=== PATIENT | female | born 1930 | race Caucasian/White ===

== ENCOUNTER 2016-07-18 12:02 | Emergency (ER) | payer OTHER ==
[2016-07-18] MEDS ORDERED: ASPIRIN ONE (12:09)
[2016-07-18] MEDS ORDERED: ASPIRIN PO ONE (12:10)
[2016-07-18 12:21] LABS: MANUAL DIFF NEEDED? NO
[2016-07-18 12:22] LABS: BASO% 0.2 % (0.0-0.8); EOS% 0.7 % (0.0-10.0); HEMOGLOBIN 15.5 g/dL (12.0-16.0); IMM GRAN# 0.02 X1000 (0.0-0.04); IMM GRAN% 0.1 % (0.0-0.5); LYMPH# 3.41 X1000 (1.2-3.4); LYMPH% 25.5 % (20.5-51.1); MCH 26.5 PG (27-31); MCV 80.2 FL (81-99); MONO# 1.48 X1000 (0.11-0.59); MONO% 11.1 % (1.7-9.3); MPV 12.8 FL (7.4-10.4); NEUT% 62.4 % (42.2-75.2); PLT 234 X1000 (130-400); RBC 5.86 XMIL (4.2-5.4)
--- NOTE | 2016-07-18 12:36 | EKG Report ---
Test Performed on : 07/18/2016 12:12:03 PM Test Reason : CP Blood Pressure : / mmHG Vent. Rate : 055 BPM Atrial Rate : 055 BPM P-R Int : 228 ms QRS Dur : 170 ms QT Int : 542 ms P-R-T Axes : 067 -75 036 degrees QTc Int : 518 ms Sinus bradycardia. with 1st degree AV block. Possible Left atrial enlargement Right bundle branch block Left anterior fascicular block Bifascicular block Septal infarct , age undetermined Abnormal ECG When compared with ECG of 25-NOV-2012 04:58, Septal infarct is now present Unconfirmed Result
[2016-07-18 12:37] LABS: INR 1.28 (0.86-1.15); PROTIME 16.3 Seconds (12.1-15.5)
[2016-07-18 12:45] LABS: AGAP 13; ALBUMIN 4.4 g/dL (3.5-5.0); ALKALINE PHOSPHATASE 82 U/L (32-104); BUN 18 mg/dL (8-22); CALCIUM 9.5 mg/dL (8.8-10.2); CHLORIDE 99 mmol/L (98-107); CK PROFILE 73 U/L (24-173); COSMO 279; GOT 26 U/L (10-30); GPT 21 U/L (10-36); MAGNESIUM 2.1 mg/dL (1.5-2.7); POTASSIUM 3.8 mmol/L (3.5-5.1); SODIUM 139 mmol/L (136-145); TCO2 28 mmol/L (25-35); TOTAL PROTEIN 7.6 g/dL (6.3-8.3)
--- NOTE | 2016-07-18 12:45 | ED EKG INTERP ---
EKG Interpretation - EKG Time of EKG reading by physician:: 12:12 EKG Read and Signed by:: Suraj Ho EKG Interpretation (*Must complete 3 of following elements*): Abnormal ( bifascicular block; septal infarct, age undetermined) Rate: 55 Rhythm: sinus bradycardia with 1st degree AV block Comments: possible left atrial enlargement; RBBB; left anterior fascicular block Attestation - Scribe Verification/Attestation Scribe:: Lucila Grullon Acting as Scribe for:: Suraj Ho Scribe documention review:: This chart was documented by a scribe and accurately reflects the service the provider performed and the decisions made by the provider.
--- NOTE | 2016-07-18 13:28 | PROVIDER DOCUMENTATION ---
HPI-Chest Pain - General Chief Complaint: Chest Pain Stated Complaint: B/P PROB/CHEST PAIN Time Seen by Provider: 07/18/16 13:23 Source: patient Allergies/Adverse Reactions: Patient Allergies Allergy/AdvReac Type Severity Reaction Status Date / Time Penicillins Allergy HIVES Verified 09/09/13 16:39 Home Medications: Home Medication List Medication Instructions Recorded Confirmed Last Taken Type Benzonatate 100 mg PO TID PRN PRN 11/25/12 11/25/12 Unknown History Calcium Carb/Vit D3/Minerals 1 each PO 11/25/12 09/09/13 11/24/12 17:00 History [Calcium 600 + D Tablet] Diltiazem HCl [Diltiazem 24Hr ER] 240 mg PO 11/25/12 09/09/13 11/24/12 06:00 History Flecainide Acetate 50 mg PO 11/25/12 11/25/12 11/24/12 17:00 History Magnesium Oxide [Magnesium] 400 mg PO 11/25/12 09/09/13 11/24/12 17:00 History Meclizine HCl [Antivert] 25 mg PO PRN PRN 11/25/12 09/09/13 Unknown History Multivitamin [Multivitamins] 1 each PO 11/25/12 09/09/13 11/24/12 06:00 History Omeprazole 20 mg PO PRN PRN 11/25/12 09/09/13 Unknown History PRAVAstatin [Pravachol] 20 mg PO QHS 11/25/12 09/09/13 Unknown History Risedronate Sodium [Actonel] 150 mg PO DIRECTED 11/25/12 09/09/13 11/20/12 06 :00 History Rivaroxaban [Xarelto] 20 mg PO DAILY 11/25/12 09/09/13 11/24/12 17:00 History Tramadol [Ultram] 50 mg PO Q4H PRN PRN 11/25/12 09/09/13 Unknown History Acetaminophen E.r. [Tylenol 650 mg PO BID 09/09/13 09/09/13 Unknown History Arthritis] Amlodipine Besylate [Norvasc] 2.5 mg PO DAILY 09/09/13 09/09/13 Unknown History Tramadol [Ultram] 50 mg PO Q8HR PRN #30 tablet 09/09/13 Unknown Rx Nitroglycerin [Nitrostat] 0.4 mg SL DIRECTED PRN PRN #20 07/18/16 Unknown Rx tab.subl - History of Present Illness-CP Nature of Presenting Problem: Pt is 85 y/o F presents to the ED with chest pain. Pt states had it yesterday for 15 minutes then resolved. Pt states pain started this am. Pt states she thought it was heartburn. Pt denies radiation of pain. Location: reports: central Chest Pain Radiation: reports: no radiation Quality of Pain: reports: pressure Severity in ED: mild Onset/Duration: this morning Timing: gone now Context/Activities at Onset: reports: light activity Modifying Factors: improves with: nothing Associated Symptoms: reports: denies symptoms Nitro Today/Relief: no nitro taken today Aspirin Treatment Today: no aspirin today Prior Chest Pain/Cardiac Workup: reports: stress test Similar Symptoms Previously?: Yes Recently Seen Here or By Another Healthcare Provider: No Review of Systems - Adult - REVIEW OF SYSTEMS - ADULT Constitutional: denies: chills, fever Eyes: denies: blurred vision, double vision Ears, Nose, Mouth & Throat: denies: ear pain, nose pain, throat pain Cardiovascular: reports: chest pain. denies: heart murmur, irregular heart rate Respiratory: denies: cough, shortness of breath, wheezing Gastrointestinal: denies: abdominal pain, diarrhea, nausea, vomiting Genitourinary: denies: dysuria, hematuria Musculoskeletal: denies: bone pain, joint pain, neck pain Integumentary: denies: hives, itching Neurological: denies: dizziness/vertigo, headache/migraines Psychiatric: reports: no symptoms reported Endocrine: reports: no symptoms reported Hematologic/Lymphatic: reports: no symptoms reported Allergic/Immunologic: reports: no symptoms reported All Other Systems: Reviewed and Negative Past History - Adult - PAST MEDICAL HISTORY-ADULT Review of Records: reports: Nursing Assessment Review, Medications Reviewed, Social history reviewed & non-contributory. Major Childhood Illnesses: reports: denies history Cardiovascular: reports: cardiac disease, HTN, hyperlipidemia Respiratory: reports: denies history Gastrointestinal: reports: GERD Obstetrical/Gynecological: reports: denies history Genitourinary: reports: denies history Musculoskeletal: reports: denies history Neurological: reports: denies history Endocrine/Immune: reports: other (osteoarthritis) Other Conditions: reports: denies history - PRIOR SURGERIES/PROCEDURES Surgical/Procedure History: reports: hysterectomy, tonsillectomy, joint replacement (knee), other (mastectomy) - IMMUNIZATION STATUS Childhood Immunizations: See Nurse Assessment Flu Vaccine: See Nurse Assessment - FAMILY HISTORY Family History: reviewed, not pertinent - SOCIAL HISTORY Smoking: denies Substance Use: denies Living Situation: family Physical Exam-General - PHYSICAL EXAM-ADULT Initial Vital Signs Reviewed: Yes - CONSTITUTIONAL General Appearance: appears well, alert, no apparent distress - EYES Eyes: PERRL/EOMI, pink conjunctivae, fundi clear, no AV nicking - HEAD, EARS, NOSE, MOUTH & THROAT HENMT: normocephalic/atraumatic, moist mucous membranes, normal ENT inspection, TMs normal, pharynx normal - NECK Neck: non-tender, full range of motion, supple, normal inspection - RESPIRATORY Respiratory: chest non-tender, lungs clear, normal breath sounds, no pleuratic chest pain, no respiratory distress, no accessory muscle use - CARDIOVASCULAR Cardiovascular: normal peripheral pulses, regular rate, rhythm, no edema, no gallop, no JVD, no murmur - GASTROINTESTINAL (ABDOMEN) Abdominal Exam: normal bowel sounds, non tender, soft, no organomegaly, no pulsatile mass - LYMPHATIC Lymphatic: no adenopathy - MUSCULOSKELETAL Back Exam: normal inspection, no CVA tenderness, no vertebral tenderness Extremity: normal range of motion, non-tender, normal inspection, no pedal edema , no calf tenderness, normal capillary refill, pelvis stable - SKIN Integumentary: normal color, normal turgor, warm/dry - NEUROLOGIC Neurologic: display mechanic II-XII nml as tested, grossly normal, no motor/sensory deficits - PSYCHIATRIC Psych/Mental Status: normal mood/affect, normal thought content, normal thought process, oriented x 3 Progress - PLAN OF CARE/RESULTS Progress/Plan/Lab Results: Laboratory Tests 07/18/16 07/18/16 07/18/16 12:10 12:10 12:10 WBC RBC Hgb Hct MCV MCH MCHC RDW Std Deviation Plt Count MPV Immature Gran % (Auto) Neut % (Auto) Lymph % (Auto) [place] % (Auto) Eos % (Auto) Baso % (Auto) Immature Gran # (Auto) Neut # (Auto) Lymph # (Auto) [place] # (Auto) Eos # (Auto) Baso # (Auto) PT INR D-Dimer Sodium 139 Potassium 3.8 Chloride 99 Carbon Dioxide 28 Anion Gap 13 BUN 18 Creatinine 0.6 Estimated GFR/1.73 m2 > 60 BUN/Creatinine Ratio 30 Glucose 96 Calculated Osmolality 279 Calcium 9.5 Magnesium 2.1 Total Bilirubin 0.50 AST 26 ALT 21 Alkaline Phosphatase 82 Creatine Kinase 73 Troponin T < 0.010 Qvr-C-Qhzpmwemrfw Pept 119 Total Protein 7.6 Albumin 4.4 Globulin 3.0 Albumin/Globulin Ratio 1.0 07/18/16 07/18/16 12:10 12:10 WBC 13.36 H RBC 5.86 H Hgb 15.5 Hct 47.0 MCV 80.2 L MCH 26.5 L MCHC 33.0 RDW Std Deviation 15.9 H Plt Count 234 MPV 12.8 H Immature Gran % (Auto) 0.1 Neut % (Auto) 62.4 Lymph % (Auto) 25.5 [place] % (Auto) 11.1 H Eos % (Auto) 0.7 Baso % (Auto) 0.2 Immature Gran # (Auto) 0.02 Neut # (Auto) 8.32 H Lymph # (Auto) 3.41 H [place] # (Auto) 1.48 H Eos # (Auto) 0.10 Baso # (Auto) 0.03 PT 16.3 H INR 1.28 H D-Dimer < 0.22 L Sodium Potassium Chloride Carbon Dioxide Anion Gap BUN Creatinine Estimated GFR/1.73 m2 BUN/Creatinine Ratio Glucose Calculated Osmolality Calcium Magnesium Total Bilirubin AST ALT Alkaline Phosphatase Creatine Kinase Troponin T Wyq-I-Cienbmcilte Pept Total Protein Albumin Globulin Albumin/Globulin Ratio Orders Category Date Time Status Cardiac Monitoring DIRECTED Care 07/18/16 12:10 Active Oxygen Therapy- ED Nursing DIRECTED Care 07/18/16 12:10 Active Saline Loc NOW Care 07/18/16 12:13 Active CHEST-2 VIEWS [RAD] Stat Exams 07/18/16 12:10 Taken CBC WITH DIFF [HEME] Stat Lab 07/18/16 12:10 Completed CK PROFILE [SP CHEM] Stat Lab 07/18/16 12:10 Completed COMPREHENSIVE METABOLIC PANEL [CHEM] Stat Lab 07/18/16 12:10 [address] D-DIMER PL [COAG] Stat Lab 07/18/16 12:10 Completed MAGNESIUM [CHEM] Stat Lab 07/18/16 12:10 Completed PRO B-NATRIURETIC PEPTIDE Stat Lab 07/18/16 12:10 Com[address]IME WITH INR PL [COAG] Stat Lab 07/18/16 12:10 Completed TROPONIN T Stat Lab 07/18/16 12:10 Completed Aspirin Med 07/18/16 12:09 Discontinued 325 mg .ROUTE .STK-MED ONE Aspirin Med 07/18/16 12:10 Discontinued 325 mg PO NOW ONE EKG [EKG] Stat Ther 07/18/16 12:10 Draft Vital Signs - 24 hr 07/18/16 07/18/16 12:04 12:13 Temperature 98 F Pulse Rate 64 66 Respiratory 18 18 Rate Blood Pressure 212/89 O2 Sat by Pulse 94 L 95 Oximetry Laboratory Tests 07/18/16 07/18/16 07/18/16 12:10 12:10 12:10 WBC RBC Hgb Hct MCV MCH MCHC RDW Std Deviation Plt Count MPV Immature Gran % (Auto) Neut % (Auto) Lymph % (Auto) [place] % (Auto) Eos % (Auto) Baso % (Auto) Immature Gran # (Auto) Neut # (Auto) Lymph # (Auto) [place] # (Auto) Eos # (Auto) Baso # (Auto) PT INR D-Dimer Sodium 139 Potassium 3.8 Chloride 99 Carbon Dioxide 28 Anion Gap 13 BUN 18 Creatinine 0.6 Estimated GFR/1.73 m2 > 60 BUN/Creatinine Ratio 30 Glucose 96 Calculated Osmolality 279 Calcium 9.5 Magnesium 2.1 Total Bilirubin 0.50 AST 26 ALT 21 Alkaline Phosphatase 82 Creatine Kinase 73 Troponin T < 0.010 Kam-R-Actbgnnjmgj Pept 119 Total Protein 7.6 Albumin 4.4 Globulin 3.0 Albumin/Globulin Ratio 1.0 07/18/16 07/18/16 07/18/16 12:10 12:10 14:30 WBC 13.36 H RBC 5.86 H Hgb 15.5 Hct 47.0 MCV 80.2 L MCH 26.5 L MCHC 33.0 RDW Std Deviation 15.9 H Plt Count 234 MPV 12.8 H Immature Gran % (Auto) 0.1 Neut % (Auto) 62.4 Lymph % (Auto) 25.5 [place] % (Auto) 11.1 H Eos % (Auto) 0.7 Baso % (Auto) 0.2 Immature Gran # (Auto) 0.02 Neut # (Auto) 8.32 H Lymph # (Auto) 3.41 H [place] # (Auto) 1.48 H Eos # (Auto) 0.10 Baso # (Auto) 0.03 PT 16.3 H INR 1.28 H D-Dimer < 0.22 L Sodium Potassium Chloride Carbon Dioxide Anion Gap BUN Creatinine Estimated GFR/1.73 m2 BUN/Creatinine Ratio Glucose Calculated Osmolality Calcium Magnesium Total Bilirubin AST ALT Alkaline Phosphatase Creatine Kinase 67 Troponin T Hkb-M-Patlmwjhdzr Pept Total Protein Albumin Globulin Albumin/Globulin Ratio 07/18/16 14:30 WBC RBC Hgb Hct MCV MCH MCHC RDW Std Deviation Plt Count MPV Immature Gran % (Auto) Neut % (Auto) Lymph % (Auto) [place] % (Auto) Eos % (Auto) Baso % (Auto) Immature Gran # (Auto) Neut # (Auto) Lymph # (Auto) [place] # (Auto) Eos # (Auto) Baso # (Auto) PT INR D-Dimer Sodium Potassium Chloride Carbon Dioxide Anion Gap BUN Creatinine Estimated GFR/1.73 m2 BUN/Creatinine Ratio Glucose Calculated Osmolality Calcium Magnesium Total Bilirubin AST ALT Alkaline Phosphatase Creatine Kinase Troponin T < 0.010 Ilt-Q-Bjoqntptaja Pept Total Protein Albumin Globulin Albumin/Globulin Ratio - EKG 1 Time of EKG reading by physician:: 14:07 EKG Read and Signed by:: Suraj Ho EKG Interpretation (*Must complete 3 of following elements*): Abnormal Rate: 50 Rhythm: sinus bradycardia with sinus arrhythmia with 1st degree AV block Comments: left axis deviation; RBBB; septal infarct, age undetermined - XRAY 1 XRAY: Bilateral XRAY Study: Chest Impression: Abnormal XRAY Interpretation: cardiomegaly per Dr. Ho Departure - Departure Time of Disposition Order: 16:05 DIAGNOSIS: Bradycardia, Atypical chest pain HTN (hypertension) Qualifiers: Hypertension type: unspecified secondary hypertension Qualified Code(s): I15.9 - Secondary hypertension, unspecified; I15 - Secondary hypertension Disposition: HOME 01 Certified Medical Emergency: Emergent Condition: Stable Additional Instructions: ED Follow Up Instructions: You have been treated by a care provider in the Emergency Department. These instructions are being provided to you so you can have an understanding of how to care for yourself upon discharge. Upon discharge from the Emergency Department, you are responsible for making arrangements for follow-up care by a physician of your choice. Take all prescribed medications as directed. Return to the Emergency Department immediately for any new or worsening symptoms. You may call the Physician Referral phone number at [phone] to obtain a list of Physicians who are taking new patients. Prescriptions: Nitroglycerin [Nitrostat] 0.4 mg SL DIRECTED PRN PRN #20 tab.subl PRN Reason: Chest Pain Referrals: Jose Manuel Espinoza MD [Primary Care Provider] - Attestation - Scribe Verification/Attestation Scribe:: Lucila Grullon Acting as Scribe for:: Suraj Ho Scribe documention review:: This chart was documented by a scribe and accurately reflects the service the provider performed and the decisions made by the provider.
[2016-07-18] MEDS ORDERED: CATAPRES PO ONE (13:52)
[2016-07-18] MEDS ORDERED: LASIX IV ONE (13:53)
--- NOTE | 2016-07-18 14:17 | EKG Report ---
Test Performed on : 07/18/2016 2:07:15 PM Test Reason : REPEAT Blood Pressure : / mmHG Vent. Rate : 050 BPM Atrial Rate : 050 BPM P-R Int : 268 ms QRS Dur : 164 ms QT Int : 530 ms P-R-T Axes : 072 -78 027 degrees QTc Int : 483 ms Sinus bradycardia. with sinus arrhythmia. with 1st degree AV block. Possible Left atrial enlargement Left axis deviation Right bundle branch block Septal infarct (cited on or before 18-JUL-2016) Abnormal ECG When compared with ECG of 18-JUL-2016 12:12, (Unconfirmed) Questionable change in initial forces of Septal leads Unconfirmed Result
[2016-07-18 15:52] VITALS: BP 172/80
--- NOTE | 2016-07-18 17:06 | Diag Imaging Result Document ---
PROCEDURE NAME: CHEST-2 VIEWS - 07/18/2016 TWO VIEWS OF THE CHEST: FINDINGS: There is no evidence of acute cardiac or pulmonary disease. There are no previous studies. IMPRESSION: No acute disease.
== END 2016-07-18 16:14 | disposition home or self-care (01) ==
LOC: P.ED 12:02
DX: R00.1 Bradycardia, unspecified (principal); R07.89 Other chest pain; I15.9 Secondary hypertension, unspecified; I10 Essential (primary) hypertension; E78.5 Hyperlipidemia, unspecified; K21.9 Gastro-esophageal reflux disease without esophagitis; M19.90 Unspecified osteoarthritis, unspecified site; R94.31 Abnormal electrocardiogram [ECG] [EKG]; Z79.899 Other long term (current) drug therapy; Z90.10 Acquired absence of unspecified breast and nipple; Z96.659 Presence of unspecified artificial knee joint; Z79.01 Long term (current) use of anticoagulants
CPT/HCPCS: 71020; 80053; 82550; 83735; 83880; 84484; 85025; 85379; 85610; 93005; 96374; J1940

== ENCOUNTER 2016-08-13 06:51 | Emergency (ER) | payer OTHER ==
--- NOTE | 2016-08-13 07:21 | PROVIDER DOCUMENTATION ---
HPI-Female /OB/Breast - History of Present Illness-Female /OB Does patient report she is ?: No <Lizette Tomlin - Last Filed: 08/13/16 12:05> - General Source: reports: patient - History of Present Illness-Female /OB Location of complaint: reports: other (no pain) Radiation: reports: none Quality of Pain: reports: none Onset/Duration: reports: last night Timing: reports: still present Context/Activities at Onset: reports: sleep Vaginal Symptoms: reports: no symptoms Vaginal Bleeding Amount: None Urinary Symptoms: reports: hematuria Related Symptoms: reports: no symptoms Leakage of Fluid: none Modifying Factors: improves with: nothing Associated Symptoms: reports: denies symptoms Similar Symptoms Previously?: No Recently seen or treated by another doctor?: No <Suraj Ho - Last Filed: 08/13/16 12:09> - General Chief Complaint: UTI Symptoms Stated Complaint: BLOOD IN URINE Time Seen by Provider: 08/13/16 07:12 Allergies/Adverse Reactions: Patient Allergies Allergy/AdvReac Type Severity Reaction Status Date / Time Penicillins Allergy HIVES Verified 09/09/13 16:39 Home Medications: Home Medication List Medication Instructions Recorded Confirmed Last Taken Type Benzonatate 100 mg PO TID PRN PRN 11/25/12 11/25/12 Unknown History Calcium Carb/Vit D3/Minerals 1 each PO 11/25/12 09/09/13 11/24/12 17:00 History [Calcium 600 + D Tablet] Diltiazem HCl [Diltiazem 24Hr ER] 240 mg PO 11/25/12 09/09/13 11/24/12 06:00 History Flecainide Acetate 50 mg PO 11/25/12 11/25/12 11/24/12 17:00 History Magnesium Oxide [Magnesium] 400 mg PO 11/25/12 09/09/13 11/24/12 17:00 History Meclizine HCl [Antivert] 25 mg PO PRN PRN 11/25/12 09/09/13 Unknown History Multivitamin [Multivitamins] 1 each PO 11/25/12 09/09/13 11/24/12 06:00 History Omeprazole 20 mg PO PRN PRN 11/25/12 09/09/13 Unknown History PRAVAstatin [Pravachol] 20 mg PO QHS 11/25/12 09/09/13 Unknown History Risedronate Sodium [Actonel] 150 mg PO DIRECTED 11/25/12 09/09/13 11/20/12 06 :00 History Rivaroxaban [Xarelto] 20 mg PO DAILY 11/25/12 09/09/13 11/24/12 17:00 History Tramadol [Ultram] 50 mg PO Q4H PRN PRN 11/25/12 09/09/13 Unknown History Acetaminophen E.r. [Tylenol 650 mg PO BID 09/09/13 09/09/13 Unknown History Arthritis] Amlodipine Besylate [Norvasc] 2.5 mg PO DAILY 09/09/13 09/09/13 Unknown History Tramadol [Ultram] 50 mg PO Q8HR PRN #30 tablet 09/09/13 Unknown Rx Nitroglycerin [Nitrostat] 0.4 mg SL DIRECTED PRN PRN #20 07/18/16 Unknown Rx tab.subl - History of Present Illness-Female /OB Nature of Presenting Problem: pt is a 85 y/o F present to the Er with c/o blood in the urine that started last night. pt denies n,v, d. pt has hx of a.fib, knee surgery x2. denies smoking/drinking. (Lizette Tomlin) noticed painless hematuria midnite on xarelto for afib (Suraj Ho) Review of Systems - Adult - REVIEW OF SYSTEMS - ADULT Constitutional: denies: chills, fever Eyes: reports: no symptoms reported Ears, Nose, Mouth & Throat: reports: no symptoms reported Cardiovascular: reports: no symptoms reported Respiratory: reports: no symptoms reported Gastrointestinal: reports: no symptoms reported Genitourinary: reports: frequent UTI's, hematuria Musculoskeletal: reports: no symptoms reported Integumentary: reports: no symptoms reported Neurological: reports: no symptoms reported Endocrine: reports: no symptoms reported Hematologic/Lymphatic: reports: no symptoms reported Allergic/Immunologic: reports: no symptoms reported <Suraj Ho - Last Filed: 08/13/16 12:09> Past History - Adult - PAST MEDICAL HISTORY-ADULT Review of Records: reports: Nursing Assessment Review, Medications Reviewed, Social history reviewed & non-contributory. Major Childhood Illnesses: reports: denies history Cardiovascular: reports: cardiac disease, HTN, hyperlipidemia Respiratory: reports: denies history Gastrointestinal: reports: GERD Obstetrical/Gynecological: reports: denies history Genitourinary: reports: denies history Musculoskeletal: reports: denies history Neurological: reports: denies history Endocrine/Immune: reports: other (osteoarthritis) Other Conditions: reports: denies history - PRIOR SURGERIES/PROCEDURES Surgical/Procedure History: reports: hysterectomy, tonsillectomy, joint replacement (knee), other (mastectomy) - IMMUNIZATION STATUS Childhood Immunizations: See Nurse Assessment Flu Vaccine: See Nurse Assessment - FAMILY HISTORY Family History: reviewed, not pertinent - SOCIAL HISTORY Smoking: denies Alcohol Use Frequency: never <Suraj Ho - Last Filed: 08/13/16 12:09> Physical Exam-General - PHYSICAL EXAM-ADULT Initial Vital Signs Reviewed: Yes - CONSTITUTIONAL General Appearance: appears well, alert, no apparent distress - EYES Eyes: PERRL/EOMI, pink conjunctivae - HEAD, EARS, NOSE, MOUTH & THROAT HENMT: moist mucous membranes, normal ENT inspection - NECK Neck: non-tender, full range of motion - RESPIRATORY Respiratory: chest non-tender, lungs clear, normal breath sounds, no pleuratic chest pain, no respiratory distress, no accessory muscle use - CARDIOVASCULAR Cardiovascular: normal peripheral pulses, regular rate, rhythm, no edema, no gallop, no JVD, no murmur - GASTROINTESTINAL (ABDOMEN) Abdominal Exam: normal bowel sounds, non tender, soft - MUSCULOSKELETAL Extremity: normal range of motion, non-tender, normal gait, normal inspection, no pedal edema, no calf tenderness, normal capillary refill - SKIN Integumentary: normal color, normal turgor, warm/dry - NEUROLOGIC Neurologic: grossly normal, no motor/sensory deficits - PSYCHIATRIC Psych/Mental Status: normal mood/affect, normal thought content, normal thought process, oriented x 3 <Lizette Tomlin - Last Filed: 08/13/16 12:05> - PHYSICAL EXAM-ADULT Initial Vital Signs Reviewed: Yes - CONSTITUTIONAL General Appearance: appears well, alert, no apparent distress - EYES Eyes: PERRL/EOMI, pink conjunctivae - HEAD, EARS, NOSE, MOUTH & THROAT HENMT: normocephalic/atraumatic - NECK Neck: supple - RESPIRATORY Respiratory: lungs clear, no respiratory distress - CARDIOVASCULAR Cardiovascular: regular rate, rhythm - GASTROINTESTINAL (ABDOMEN) Abdominal Exam: soft - LYMPHATIC Lymphatic: no adenopathy - MUSCULOSKELETAL Back Exam: normal inspection, no CVA tenderness Extremity: normal range of motion - SKIN Integumentary: normal color, normal turgor - NEUROLOGIC Neurologic: grossly normal - PSYCHIATRIC Psych/Mental Status: oriented x 3 <Suraj Ho - Last Filed: 08/13/16 12:09> Progress - CT/MRI 1 CT Study: Renal Stone Impression: Abnormal (Mild bilateral hydronephrosis, right greater than left, with no defenitive ureteral calculi, although it is difficult to completely exclude a distal left ureteral calculus. Evaluation of the solid viseral organs is limited by lack of IV contrast. Consider follow up with contrast in this pt with gross painless hematuria. extensive diverticulosis. no evidence of diverticulitis. cholelithiasis. gastric wall thickeningverus nondistention. portable adrenal hyperplasia) Impression: Abnormal 2 CT Study: Abdomen (w/ contrast), Pelvis (w/ contrast) Impression: Abnormal (8mm simple cyst Lkidney, no urolithiasis or obst, bladder unremarkable, diverticulosis) Comparison with other Films: changes noted <Lizette Tomlin - Last Filed: 08/13/16 12:05> <Suraj Ho - Last Filed: 08/13/16 12:09> - PLAN OF CARE/RESULTS Progress/Plan/Lab Results: Laboratory Tests 08/13/16 08/13/16 08/13/16 07:10 09:06 09:06 WBC 7.96 RBC 5.35 Hgb 14.3 Hct 44.0 MCV 82.2 MCH 26.7 L MCHC 32.5 L RDW Std Deviation 15.2 H Plt Count 214 MPV 12.4 H Immature Gran % (Auto) 0.1 Neut % (Auto) 54.0 Lymph % (Auto) 30.7 [place] % (Auto) 13.1 H Eos % (Auto) 1.5 Baso % (Auto) 0.6 Immature Gran # (Auto) 0.01 Neut # (Auto) 4.30 Lymph # (Auto) 2.44 [place] # (Auto) 1.04 H Eos # (Auto) 0.12 Baso # (Auto) 0.05 Sodium 139 Potassium 4.3 Chloride 103 Carbon Dioxide 26 Anion Gap 10 BUN 14 Creatinine 0.5 Estimated GFR/1.73 m2 > 60 BUN/Creatinine Ratio 28 Glucose 76 Calculated Osmolality 277 Calcium 9.3 Total Bilirubin 0.40 AST 26 ALT 17 Alkaline Phosphatase 64 Total Protein 6.8 Albumin 3.9 Globulin 3.0 Albumin/Globulin Ratio 1.0 Urine Source CLEAN CATCH Urine Color RED Urine Clarity VERY CLOUDY A Urine pH 7.0 Ur Specific [place] 1.010 Urine Protein 2+(100 mg/dL) A Urine Ketones TRACE Urine Blood 4+ Urine Nitrite NEGATIVE Urine Bilirubin NEGATIVE Urine Urobilinogen NORMAL Urine Microscopic RBC TNTC A Urine WBC 1+ A Urine Microscopic WBC <10 Ur Epithelial Cells <10 Urine Bacteria 2+ Urine Glucose NEGATIVE Orders Category Date Time Status ABDOMEN/PELVIS W/CONTRAST [CT] Stat Exams 08/13/16 10:41 Ordered RENAL STONE SEARCH [CT] Stat Exams 08/13/16 08:04 Draft CBC WITH DIFF [HEME] Stat Lab 08/13/16 09:06 Completed CMP [COMPREHENSIVE METABOLIC PANEL] [CHEM] Stat Lab 08/13/16 09:[address] W/POSS RFLX CULT [URINALYSIS] Stat Lab 08/13/16 07:10 Completed URINE CULTURE [RM] Routine Lab 08/13/16 07:39 Ordered Vital Signs - 24 hr 08/13/16 07:00 Temperature 97.3 F L Pulse Rate 83 Respiratory 18 Rate Blood Pressure 156/68 O2 Sat by Pulse 95 Oximetry Orders Category Date Time Status ABDOMEN/PELVIS W/CONTRAST [CT] Stat Exams 08/13/16 10:41 Taken RENAL STONE SEARCH [CT] Stat Exams 08/13/16 08:04 Draft CBC WITH DIFF [HEME] Stat Lab 08/13/16 09:06 Completed CMP [COMPREHENSIVE METABOLIC PANEL] [CHEM] Stat Lab 08/13/16 09:[address] W/POSS RFLX CULT [URINALYSIS] Stat Lab 08/13/16 07:10 Completed URINE CULTURE [RM] Routine Lab 08/13/16 07:39 Ordered (Lizette Tomlin) Departure <Lizette Tomlin - Last Filed: 08/13/16 12:05> - Departure Time of Disposition Order: 12:08 Certified Medical Emergency: Emergent <Suraj Ho - Last Filed: 08/13/16 12:09> - Departure DIAGNOSIS: Gross hematuria Disposition: HOME 01 Condition: Stable Additional Instructions: call dr arizmendi or [facility] ED Follow Up Instructions: You have been treated by a care provider in the Emergency Department. These instructions are being provided to you so you can have an understanding of how to care for yourself upon discharge. Upon discharge from the Emergency Department, you are responsible for making arrangements for follow-up care by a physician of your choice. Take all prescribed medications as directed. Return to the Emergency Department immediately for any new or worsening symptoms. You may call the Physician Referral phone number at [phone] to obtain a list of Physicians who are taking new patients. Referrals: Jose Manuel Espinoza MD [Primary Care Provider] - Attestation - Scribe Verification/Attestation Scribe:: Lizette Tomlin Acting as Scribe for:: Suraj Ho Scribe documention review:: This chart was documented by a scribe and accurately reflects the service the provider performed and the decisions made by the provider. <Lizette Tomlin - Last Filed: 08/13/16 12:05> Physician Attestation
[2016-08-13 07:22] LABS: URINE SOURCE CLEAN CATCH
[2016-08-13 07:28] LABS: BILIRUBIN URINE NEGATIVE (NEGATIVE); BLOOD URINE 4+ (NEGATIVE); CLARITY VERY CLOUDY (CLEAR); COLOR RED; GLUCOSE URINE NEGATIVE (NEGATIVE); LEUKOCYTES URINE 1+ (NEGATIVE); NITRITE URINE NEGATIVE (NEGATIVE); PROTEIN URINE 2+(100 mg/dL) mg/dL (NEGATIVE); UROBILINOGEN URINE NORMAL
[2016-08-13 07:38] LABS: URINE EPITHELIAL CELLS <10 /HPF (<10); URINE RBC TNTC /HPF (<10); URINE WBC <10 /HPF (<10)
[2016-08-13 07:39] LABS: URINE CULTURE PL NEEDED? YES
[2016-08-13 09:09] LABS: MANUAL DIFF NEEDED? NO
[2016-08-13 09:12] LABS: BASO% 0.6 % (0.0-0.8); EOS# 0.12 X1000 (0.0-0.7); EOS% 1.5 % (0.0-10.0); HEMOGLOBIN 14.3 g/dL (12.0-16.0); IMM GRAN# 0.01 X1000 (0.0-0.04); IMM GRAN% 0.1 % (0.0-0.5); LYMPH# 2.44 X1000 (1.2-3.4); LYMPH% 30.7 % (20.5-51.1); MCH 26.7 PG (27-31); MCHC 32.5 g/dL (33-37); MCV 82.2 FL (81-99); MONO# 1.04 X1000 (0.11-0.59); MONO% 13.1 % (1.7-9.3); MPV 12.4 FL (7.4-10.4); PLT 214 X1000 (130-400); RBC 5.35 XMIL (4.2-5.4)
--- NOTE | 2016-08-13 09:31 | Diag Imaging Result Document ---
PROCEDURE NAME: RENAL STONE SEARCH - 08/13/[address]: INDICATION: Painless gross hematuria. FINDINGS: This evaluation is limited by lack of IV contrast and solid organs. Masses may not be identified. There is atherosclerotic calcification. There are probable gallstones within the gallbladder. Further evaluation with ultrasound could be obtained for further evaluation. There is mild bilateral hydronephrosis, right greater than left. Definitive ureteral calculi are not identified. There are pelvic calcifications which are thought to be adjacent to the ureters. I cannot definitely exclude a distal left ureteral calculus, however. There is extensive diverticulosis. There is no evidence for diverticulitis. The uterus is not identified. There is a tiny fat-containing umbilical hernia. There is no free fluid or free air identified. Apparent thickening of the gastric fundus could be related to nondistention versus true pathology. There are prominent adrenal glands bilaterally, likely related to hyperplasia. There are postsurgical changes, lumbar spine. There is moderate constipation. IMPRESSION: 1. Mild bilateral hydronephrosis, right greater than left, with no definitive ureteral calculi, although it is difficult to completely exclude a distal left ureteral calculus. 2. Evaluation of the solid visceral organs is limited by lack of IV contrast. Consider follow up with contrast in this patient with gross painless hematuria. 3. Extensive diverticulosis. No evidence for diverticulitis. 4. Cholelithiasis. 5. Gastric wall thickening versus nondistention. 6. Probable adrenal hyperplasia.
[2016-08-13 09:41] LABS: AGAP 10; ALBUMIN 3.9 g/dL (3.5-5.0); ALKALINE PHOSPHATASE 64 U/L (32-104); BUN 14 mg/dL (8-22); CALCIUM 9.3 mg/dL (8.8-10.2); CHLORIDE 103 mmol/L (98-107); COSMO 277; GOT 26 U/L (10-30); GPT 17 U/L (10-36); POTASSIUM 4.3 mmol/L (3.5-5.1); SODIUM 139 mmol/L (136-145); TCO2 26 mmol/L (25-35); TOTAL PROTEIN 6.8 g/dL (6.3-8.3)
[2016-08-13 12:18] VITALS: BP 154/77
== END 2016-08-13 12:33 | disposition home or self-care (01) ==
LOC: P.ED 06:51
DX: R31.0 Gross hematuria (principal); Z87.440 Personal history of urinary (tract) infections; I10 Essential (primary) hypertension; E78.5 Hyperlipidemia, unspecified; K21.9 Gastro-esophageal reflux disease without esophagitis; M19.90 Unspecified osteoarthritis, unspecified site; Z96.659 Presence of unspecified artificial knee joint; Z90.10 Acquired absence of unspecified breast and nipple; Z79.899 Other long term (current) drug therapy; Z79.01 Long term (current) use of anticoagulants
CPT/HCPCS: 36415; 74176; 74177; 80053; 81001; 85025; 87088; Q9967

== ENCOUNTER 2017-02-20 13:17 | Inpatient (IN) ==
[2017-02-20 13:52] LABS: MANUAL DIFF NEEDED? NO
[2017-02-20 14:02] LABS: BASO% 0.3 % (0.0-0.8); EOS% 2.2 % (0.0-10.0); HEMOGLOBIN 13.8 g/dL (12.0-16.0); IMM GRAN# 0.03 X1000 (0.0-0.04); IMM GRAN% 0.3 % (0.0-0.5); LYMPH% 42.9 % (20.5-51.1); MCHC 32.9 g/dL (33-37); MCV 82.2 FL (81-99); MONO# 0.87 X1000 (0.11-0.59); MONO% 9.6 % (1.7-9.3); MPV 12.9 FL (7.4-10.4); NEUT% 44.7 % (42.2-75.2); PLT 206 X1000 (130-400); RBC 5.11 XMIL (4.2-5.4)
[2017-02-20 14:09] LABS: URINE CULTURE PL NEEDED? NO
--- NOTE | 2017-02-20 14:12 | EKG Report ---
Test Performed on : 02/20/2017 1:34:13 PM Test Reason : CHEST PAIN Blood Pressure : / mmHG Vent. Rate : 063 BPM Atrial Rate : 033 BPM P-R Int : 000 ms QRS Dur : 160 ms QT Int : 464 ms P-R-T Axes : 000 -81 050 degrees QTc Int : 474 ms Atrial fibrillation. Left axis deviation Right bundle branch block Abnormal ECG When compared with ECG of 18-JUL-2016 14:07, Atrial fibrillation. has replaced Sinus rhythm. Criteria for Septal infarct are no longer present Nonspecific T wave abnormality no longer evident in Inferior leads T wave inversion now evident in Anterior leads Unconfirmed Result
[2017-02-20 14:19] LABS: BILIRUBIN URINE NEGATIVE (NEGATIVE); BLOOD URINE TRACE (NEGATIVE); COLOR YELLOW; GLUCOSE URINE NEGATIVE (NEGATIVE); LEUKOCYTES URINE TRACE (NEGATIVE); NITRITE URINE NEGATIVE (NEGATIVE); PROTEIN URINE NEGATIVE (NEGATIVE); SP GRAVITY URINE 1.015; UROBILINOGEN URINE NORMAL
--- NOTE | 2017-02-20 14:27 | Diag Imaging Result Doc PS360 ---
EXAM: CHEST-2 VIEWS INDICATION: CP TECHNIQUE: 2 views COMPARISON: 07/18/2016 FINDINGS: The lungs are grossly clear. There is no discrete pleural fluid collection or pneumothorax. The cardiomediastinal silhouette and central vasculature are grossly unremarkable. IMPRESSION: No evidence of acute pathology by plain radiograph. Electronically signed by Jose Manuel Gómez 02/20/2017 2:24 PM
[2017-02-20 14:34] LABS: URINE EPITHELIAL CELLS <10 /HPF (<10); URINE RBC <10 /HPF (<10); URINE WBC <10 /HPF (<10)
[2017-02-20 14:35] LABS: CLARITY CLEAR (CLEAR); URINE SOURCE CLEAN CATCH
[2017-02-20 14:40] LABS: AGAP 11; ALBUMIN 3.4 g/dL (3.5-5.0); ALKALINE PHOSPHATASE 57 U/L (32-104); BUN 14 mg/dL (8-22); CALCIUM 8.7 mg/dL (8.8-10.2); CHLORIDE 102 mmol/L (98-107); CK PROFILE 64 U/L (24-173); COSMO 281; GOT 15 U/L (10-30); GPT 12 U/L (10-36); POTASSIUM 3.9 mmol/L (3.5-5.1); SODIUM 139 mmol/L (136-145); TCO2 26 mmol/L (25-35); TOTAL PROTEIN 6.5 g/dL (6.3-8.3)
[2017-02-20 14:44] LABS: INR 1.71 (0.86-1.15); PROTIME 21.4 Seconds (12.1-15.5)
[2017-02-20 14:45] LABS: PTT PL 53.3 Seconds (22.6-43.9)
--- NOTE | 2017-02-20 15:39 | PROVIDER DOCUMENTATION ---
This chart was entered by Aracely Maxwell Scribe, acting as scribe for Suraj Ho MD. HPI-General Adult - General Chief Complaint: Dizziness Stated Complaint: LOW PULSE, DIZZY Time Seen by Provider: 02/20/17 13:46 Source: patient, family Allergies/Adverse Reactions: Patient Allergies Allergy/AdvReac Type Severity Reaction Status Date / Time Penicillins Allergy HIVES Verified 02/20/17 13:35 Home Medications: Home Medication List Medication Instructions Recorded Confirmed Last Taken Type Benzonatate 100 mg PO TID PRN PRN 11/25/12 11/25/12 Unknown History Calcium Carb/Vit D3/Minerals 1 each PO 11/25/12 09/09/13 11/24/12 17:00 History [Calcium 600 + D Tablet] Diltiazem HCl [Diltiazem 24Hr ER] 240 mg PO 11/25/12 09/09/13 11/24/12 06:00 History Flecainide Acetate 50 mg PO 11/25/12 11/25/12 11/24/12 17:00 History Magnesium Oxide [Magnesium] 400 mg PO 11/25/12 09/09/13 11/24/12 17:00 History Meclizine HCl [Antivert] 25 mg PO PRN PRN 11/25/12 09/09/13 Unknown History Multivitamin [Multivitamins] 1 each PO 11/25/12 09/09/13 11/24/12 06:00 History Omeprazole 20 mg PO PRN PRN 11/25/12 09/09/13 Unknown History PRAVAstatin [Pravachol] 20 mg PO QHS 11/25/12 09/09/13 Unknown History Risedronate Sodium [Actonel] 150 mg PO DIRECTED 11/25/12 09/09/13 11/20/12 06 :00 History Rivaroxaban [Xarelto] 20 mg PO DAILY 11/25/12 09/09/13 11/24/12 17:00 History Tramadol [Ultram] 50 mg PO Q4H PRN PRN 11/25/12 09/09/13 Unknown History Acetaminophen E.r. [Tylenol 650 mg PO BID 09/09/13 09/09/13 Unknown History Arthritis] Amlodipine Besylate [Norvasc] 2.5 mg PO DAILY 09/09/13 09/09/13 Unknown History Tramadol [Ultram] 50 mg PO Q8HR PRN #30 tablet 09/09/13 Unknown Rx Nitroglycerin [Nitrostat] 0.4 mg SL DIRECTED PRN PRN #20 07/18/16 Unknown Rx tab.subl - History of Present Illness -Gen Adult Nature of Presenting Problems: 86 year old female presents to the ER with complaint of dizziness x 2 weeks. Pt states she has history of dizziness. Takes antivert but this time it did not work. Denies any other symptoms. Location of Pain/Injury: reports: none Onset/Duration: reports: other (2 weeks) Associated Symptoms: reports: dizziness Review of Systems - Adult - REVIEW OF SYSTEMS - ADULT Constitutional: denies: chills, fever Eyes: reports: no symptoms reported Ears, Nose, Mouth & Throat: reports: no symptoms reported Cardiovascular: reports: no symptoms reported Respiratory: reports: no symptoms reported Gastrointestinal: reports: no symptoms reported Genitourinary: reports: no symptoms reported Musculoskeletal: reports: no symptoms reported Integumentary: reports: no symptoms reported Neurological: reports: dizziness/vertigo. denies: loss of balance Psychiatric: reports: no symptoms reported Endocrine: reports: no symptoms reported Hematologic/Lymphatic: reports: no symptoms reported Allergic/Immunologic: reports: no symptoms reported All Other Systems: Reviewed and Negative Past History - Adult - PAST MEDICAL HISTORY-ADULT Review of Records: reports: Nursing Assessment Review, Medications Reviewed Major Childhood Illnesses: reports: denies history Cardiovascular: reports: cardiac disease, HTN, hyperlipidemia Respiratory: reports: denies history Gastrointestinal: reports: GERD Obstetrical/Gynecological: reports: denies history Genitourinary: reports: denies history Musculoskeletal: reports: denies history Neurological: reports: denies history Endocrine/Immune: reports: other (osteoarthritis) Other Conditions: reports: denies history - PRIOR SURGERIES/PROCEDURES Surgical/Procedure History: reports: hysterectomy, tonsillectomy, joint replacement (knee), other (mastectomy) - IMMUNIZATION STATUS Childhood Immunizations: See Nurse Assessment Flu Vaccine: See Nurse Assessment - FAMILY HISTORY Family History: reviewed, not pertinent Physical Exam-General - CONSTITUTIONAL General Appearance: alert, no apparent distress - EYES Eyes: PERRL/EOMI, pink conjunctivae - HEAD, EARS, NOSE, MOUTH & THROAT HENMT: normocephalic/atraumatic, moist mucous membranes - NECK Neck: full range of motion, normal inspection - RESPIRATORY Respiratory: lungs clear, normal breath sounds - CARDIOVASCULAR Cardiovascular: normal peripheral pulses, regular rate, rhythm - MUSCULOSKELETAL Back Exam: no CVA tenderness, no vertebral tenderness Extremity: normal range of motion, normal inspection - SKIN Integumentary: normal color, warm/dry - NEUROLOGIC Neurologic: grossly normal, no motor/sensory deficits - PSYCHIATRIC Psych/Mental Status: normal mood/affect, normal thought content, normal thought process, oriented x 3 Progress - PLAN OF CARE/RESULTS Progress/Plan/Lab Results: Vital Signs - 8 hr 02/20/17 13:29 Temperature 98 F Pulse Rate 47 L Respiratory Rate 18 Blood Pressure 125/65 O2 Sat by Pulse Oximetry 97 Orders Category Date Time Status Cardiac Monitoring DIRECTED Care 02/20/17 13:27 Active Saline Loc NOW Care 02/20/17 13:27 Active CHEST-2 VIEWS [RAD] Stat Exams 02/20/17 13:27 Ordered CBC WITH ELECTRONIC DIFF [HEME] Stat Lab 02/20/17 13:27 Ordered CK PROFILE [SP CHEM] Stat Lab 02/20/17 13:27 Ordered COMPREHENSIVE METABOLIC PANEL [CHEM] Stat Lab 02/20/17 13:27 Ordered MAGNESIUM [CHEM] Stat Lab 02/20/17 13:27 Ordered PRO B-NATRIURETIC PEPTIDE Stat Lab 02/20/17 13:[address]IME WITH INR [address] [COAG] Stat Lab 02/20/17 13:[address] [COAG] Stat Lab 02/20/17 13:27 Ordered TROPONIN T Stat Lab 02/20/17 13:27 Ordered EKG [EKG] Stat Ther 02/20/17 13:27 Ordered Result Diagrams: 02/20/17 13:40 02/20/17 14:06 - EKG 1 Time of EKG reading by physician:: 13:34 EKG Read and Signed by:: Suraj Ho EKG Interpretation (*Must complete 3 of following elements*): Abnormal Rate: 63 Rhythm: atrial fibrillation [place]: left QRS: RBB Comments: abnormal ECG - XRAY 1 XRAY Study: Chest Impression: Normal (No evidence of acute pathology by plain radiograph) XRAY Interpretation: per radiologist Departure - Departure Date of Disposition Decision: 02/20/17 Time of Disposition Decision: 15:36 DIAGNOSIS: Symptomatic bradycardia Disposition: ADMITTED INPATIENT 09 Certified Medical Emergency: Emergent Condition: Stable Referrals and Follow-Ups: Jose Manuel Espinoza MD [Primary Care Provider] - - Critical Care Note This patient required my direct & personal management of CC.: No Attestation - Physician/ MARK ANTHONY Attestation Patient care was provided by Advanced Practice Provider:: No The physician spent face to face time with patient:: Yes Advanced Practice Provider documentation review:: Supervising physician onsite and consulted in the evaluation and care of this patient. The physician did have a face to face encounter with the patient. This chart was documented by the indicated scribe, (Aracely Maxwell Scribe) and accurately reflects the services I performed and decisions made by me, Suraj Ho MD, as attested by the provider's signature.
[2017-02-20] MEDS ORDERED: TYLENOL PO PRN (16:24)
[2017-02-20] MEDS ORDERED: ZOFRAN IV PRN (16:24)
--- NOTE | 2017-02-20 16:59 | HISTORY AND PHYSICAL ---
PRIMARY CARE PHYSICIAN: Dr. Espinoza. ADULT EDUCATOR: Dr. Pham CHIEF COMPLAINT: Of dizziness for the past 2 weeks that has progressively worsened. HISTORY OF PRESENTING ILLNESS: This is an 86-year-old female who presents to [facility] ER with complaints of dizziness for the past 2 weeks that has progressively worsened. States she has had fatigue, no energy and has just been sitting in her recliner primarily. When she arrived to the emergency room she had a heart rate of 47. A EKG on arrival showed atrial fibrillation at 63 with a right bundle branch block but she is noted to be dropping as low as 35 on the monitor. She has a history of atrial fibrillation, hypertension, hyperlipidemia and currently at home was taking diltiazem and flecainide for her atrial fibrillation, we are going to have to verify those dosages looks like she was also taken a Xarelto, a Norvasc but again all of these will have to be verified for her atrial fibrillation so she will be admitted to the intensive care unit for further evaluation and treatment. PAST MEDICAL HISTORY: Hypertension, atrial fibrillation, hyperlipidemia, GERD, osteoarthritis. PAST SURGICAL HISTORY: Tonsillectomy, hysterectomy, total knee replacement and a mastectomy. FAMILY HISTORY: Noncontributory. SOCIAL HISTORY: She currently lives alone. Denies any tobacco, alcohol, or illicit drug use. ALLERGIES: Penicillin. HOME MEDICATIONS: Will have to obtain a list and restart those as appropriate. LABORATORY DATA: Showed a white blood cell count of 9.09, hemoglobin 13.8, hematocrit 42, platelets 206,000. PT and INR of 21.4 and 1.71. Sodium of 139, potassium 3.9, chloride 102, CO2 26, BUN of 14, creatinine 0.8, glucose of 151, magnesium of 2, creatine kinase of 64 with a troponin of less than 0.010, proBNP was 229. TSH was 4.35. Urinalysis was negative. Chest x- ray showed no evidence of acute pathology by plain radiograph. EKG showed atrial fibrillation at 63 with a right bundle branch block. REVIEW OF SYSTEMS: She denied any fever, chills, blurred vision. She was positive for dizziness, fatigue. Denied any chest pain, coughing or shortness of breath. Denied any constipation, diarrhea or burning or hurting with urination. PHYSICAL EXAM: VITAL SIGNS: Showed a temperature of 98 degrees, a pulse of [address] the way down to 35 at time, respirations 18, blood pressure 125/65, saturating 97% on room air. GENERAL: This is an 86-year-old female who is lying in the bed and answers questions appropriately. HEENT: Normocephalic and atraumatic. Pupils are equal, round, and reactive to light. Extraocular movements are intact. The oropharynx and nares are clear. NECK: Supple. LUNGS: Clear to auscultation bilaterally with equal lung expansion and chest wall movement. HEART: With irregular rate and rhythm of atrial fibrillation dropping down into the 30s at times. ABDOMEN: Was soft, nontender, nondistended. Bowel sounds are present x4 quadrants. EXTREMITIES: There is no clubbing, cyanosis or edema. NEUROLOGIC: The cranial nerves 2-12 appear grossly intact. ASSESSMENT: 1. Symptomatic bradycardia. 2. Atrial fibrillation. 3. Hypertension. 4. Hyperlipidemia. PLAN: She is being admitted to the intensive care unit, placed on telemetry. We will verify her home medications but will certainly hold any antiarrhythmics at this time. Will obtain a echocardiogram and consult Cardiology. Dictated by NAYELY Rodriguez for Jan Paige MD cc: MD Jan Dang MD [facility]
[2017-02-20] MEDS ORDERED: MYLICON PO ONE (22:53)
--- NOTE | 2017-02-21 12:57 | ECHO REPORT ---
ORDER DATE: 02/20/2017 ECHOCARDIOGRAPHIC MEASUREMENTS: 1. Interventricular septum 1.1. 2. Left ventricular posterior wall 1.1. 3. Diastolic diameter 4.6. 4. Left atrium 3.3. 5. Aorta 3.7. 6. Normal left ventricular cavity size. 7. Estimated ejection fraction of 65%. 8. Aortic valve leaflets are trileaflet. 9. Mitral valve was normal. 10. There is mitral annular calcification. 11. Tricuspid valve was normal. 12. There is no aortic stenosis or regurgitation. 13. There is mild mitral regurgitation. 14. Mild tricuspid regurgitation. Peak velocity across the tricuspid valve was 2.7 m/sec. 15. Pulmonary artery systolic pressure of 39 mmHg. 16. There is no pericardial effusion or obvious intracardiac mass or thrombus seen. cc: MD Jeanie Kevin CRNP Alexis R. Penot, MD
[2017-02-21] MEDS ORDERED: ZOFRAN IV PRN (14:59)
[2017-02-21] MEDS ORDERED: PRILOSEC PO PRN (15:00)
--- NOTE | 2017-02-21 15:21 | PROGRESS NOTE ---
DATE: 02/21/2017 SUBJECTIVE: The patient states that she is feeling better. She denies any dizziness. She denies any trouble with gait. No palpitations or chest pain. OBJECTIVE: Vital Signs: Blood pressure is 170/60 with a heart rate of 54, respirations are 20. Temperature is 98 degrees with a room air saturations of 97%. HEENT: Head is normocephalic, atraumatic. Pupils are equal, round, react to light. EOMs are intact. Sclerae anicteric. Mucous membranes are moist. Neck: Supple with trachea midline. Cardiovascular: Irregularly irregular rate and rhythm. Atrial fibrillation that is varying from the mid 40s to 60. Gastrointestinal: Abdomen is soft, nontender, nondistended with bowel sounds in all 4 quadrants. Back: No CVAT. No spine tenderness. Musculoskeletal: Good range of motion of joints. Extremities: No clubbing, cyanosis, or edema. Calves nontender. Pulses are palpable x4. Neurologic: She is alert and oriented x3 with cranial nerves 2-12 grossly intact. ASSESSMENT: 1. Symptomatic bradycardia. 2. Atrial fibrillation. 3. Hypertension. 4. Hyperlipidemia. PLAN: She will continue to be monitored in ICU. We will obtain a chest x-ray today. Cardiology has been consulted. Echocardiogram is pending. We will identify her home medications and continue as appropriate. Further treatments pending hospital course. Dictated by NAYELY Callaway for Gabriel Blanchard MD cc: NAYELY Callaway MD
[2017-02-21] MEDS ORDERED: XARELTO PO SCH (17:00)
--- NOTE | 2017-02-21 18:48 | CONSULTATION ---
DATE OF CONSULTATION: 02/21/2017 IMPRESSION: 1. Symptomatic bradycardia with ECG showing junctional bradycardia and marked sinus bradycardia with some associated symptoms of postural lightheadedness. Suspect diltiazem culprit in the setting of progressive development of sinus node dysfunction. 2. Paroxysmal atrial fibrillation. Suppressed with low-dose flecainide. 3. Rare chest discomfort for which patient takes nitroglycerin sublingually. 4. Hypertension. RECOMMENDATIONS: 1. Leave off long-acting diltiazem. 2. Continue flecainide 50 mg twice daily. 3. Initiate low dose metoprolol with metoprolol succinate 25 mg daily. 4. Ambulate on telemetry. 5. If patient is stable in 24 hours, reasonable to be discharged with 30-day event recorder and follow up with Dr. Pham, her regular shingle inspector. Patient may ultimately require permanent pacemaker. 6. Continue anticoagulation for thromboembolic risk protection given [id number] score of 4. HISTORY: This 86-year-old white female with past history of paroxysmal atrial fibrillation, hypertension, and previous tendency for bradycardia after which diltiazem dose was reduced, was admitted through the emergency room with symptoms of postural lightheadedness with ECG showing bradycardia, both sinus bradycardia and junctional bradycardia. She has a history of paroxysmal atrial fibrillation and has been treated with long-acting diltiazem and low-dose flecainide. She has also been on anticoagulation for thromboembolic risk protection. She relates that for the last week or so she has had a tendency for dizziness particularly when she stands up. She clarifies it as not being vertigo, but more of a vague lightheadedness. There has been no syncope. She describes occasional palpitations, but denies tachycardia. She recalls having her diltiazem dose reduced a year or so ago because of tendency for bradycardia. She describes rare episode of chest tightness for which she may take a nitroglycerin. She has only had 1 episode in the last 6 months. Left ventricular systolic function is normal and records indicate mild mitral regurgitation. PAST MEDICAL HISTORY: 1. Paroxysmal atrial fibrillation. 2. Hypertension. 3. Hyperlipidemia. 4. Gastroesophageal reflux. 5. Arthritis. PAST SURGICAL HISTORY: Includes hemorrhoidectomy, hysterectomy, mastectomy, tonsillectomy, lumpectomy x 4, knee arthroscopic procedure, cataract extraction, and back surgery. ALLERGIES: She is allergic or intolerant to penicillin. SOCIAL HISTORY: She lives alone in the [facility]. She has a daughter that lives in the community. 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 She has never smoked or used alcohol. FAMILY HISTORY: Negative for premature coronary disease. REVIEW OF SYSTEMS: Pulmonary: Negative. Gastrointestinal: Noteworthy for tendency for reflux. Otherwise, negative. Constitutional: Negative. Remainder review of systems negative/noncontributory beyond history of present illness with 14 total systems reviewed. PHYSICAL EXAMINATION: General: This is a pleasant, elderly female in no distress. Heart rate currently 64 beats per minute and regular, with ECG monitor showing sinus rhythm. Blood pressure stable. HEENT: Extraocular movements intact. Mucous membranes are moist. Neck: Supple without jugular venous distention. There are no carotid bruits. Chest: Clear to auscultation bilaterally. Cardiac Exam: Reveals a regular rate and rhythm without appreciable murmur or gallop. Abdomen: Soft, nontender. Bowel sounds are normal. Extremities: Without edema. Neurologic Exam: Reveals her to be alert and fully oriented. Speech is fluent. She moves all 4 extremities equally well. Skin: Warm and dry. Psychiatric: Reveals her mood to be appropriate. DIAGNOSTIC DATA: A 12-lead ECG on admission demonstrates sinus bradycardia alternating with junctional bradycardia with frequent premature supraventricular complexes, left anterior fascicular block and right bundle branch block. Repeat ECG shows sinus bradycardia with first- degree AV block, left anterior fascicular block and right bundle branch block. Review of ECG telemetry strip shows junctional bradycardia and marked sinus bradycardia. Echocardiography reports normal left ventricular ejection fraction of 65% and mild mitral regurgitation. cc: MD Gabriel Velasquez MD
--- NOTE | 2017-02-21 20:40 | PROGRESS NOTE ---
DATE: 02/21/2017 ADDENDUM: SUBJECTIVE: Patient's heart rates are much improved although she has been off of her rate control medications overnight, her heart rates are in the mid 50s and sometimes 60s. Patient notes that she is starting to feel better. PHYSICAL: Currently heart rate is 66, she is in no respiratory distress. She is pleasant to talk with. PLAN: Will consult cardiology as she certainly may need to have a pacemaker at this point. Will discuss with them. cc: Gabriel Blanchard MD
[2017-02-21] MEDS: PRAVACHOL PO SCH (22:33)
[2017-02-22 06:36] LABS: AGAP 12; ALBUMIN 3.4 g/dL (3.5-5.0); ALKALINE PHOSPHATASE 67 U/L (32-104); BUN 11 mg/dL (8-22); CALCIUM 8.4 mg/dL (8.8-10.2); CHLORIDE 102 mmol/L (98-107); COSMO 274; GOT 22 U/L (10-30); GPT 15 U/L (10-36); MAGNESIUM 1.8 mg/dL (1.5-2.7); POTASSIUM 3.8 mmol/L (3.5-5.1); SODIUM 137 mmol/L (136-145); TCO2 23 mmol/L (25-35); TOTAL PROTEIN 6.7 g/dL (6.3-8.3)
[2017-02-22 06:37] LABS: HEMATOCRIT 42.7 % (37.0-47.0); HEMOGLOBIN 13.8 g/dL (12.0-16.0); MCH 26.4 PG (27-31); MCHC 32.3 g/dL (33-37); MCV 81.8 FL (81-99); MPV 13.3 FL (7.4-10.4); RBC 5.22 XMIL (4.2-5.4)
--- NOTE | 2017-02-22 08:50 | PROGRESS NOTE ---
DATE: 02/22/2017 SUBJECTIVE: Patient states she is feeling fine today. She has no complaints. She denies any chest pain, palpitations, dizziness, syncope, or general weakness. OBJECTIVE: Vital Signs: Blood pressure is 139/66 with heart rates ranging in the 68-87 range over the last 24 hours. Respirations are 18, temperature is 98.2 degrees oral. Cardiovascular: Regular rate and rhythm. S1 and S2 are appreciated. Pulmonary: Breath sounds are clear with no increased work of breathing noted. Chest does rise and fall symmetrically with respiration. Gastrointestinal: Abdomen is soft, nontender, nondistended. Bowel sounds in all 4 quadrants. Extremities: No clubbing, cyanosis, or edema. Calves nontender. Pulses are palpable x4. Neurologic: She is alert and oriented x3 with cranial nerves 2-12 grossly intact. DIAGNOSTICS: WBC is 13 with a hemoglobin of 13.8, hematocrit 42.7 and platelets of 182,000. Sodium is 137, potassium 3.8, BUN 11, creatinine 0.5 with a glucose of 107. ASSESSMENT: 1. Symptomatic bradycardia. 2. Paroxysmal atrial fibrillation. 3. Hypertension. 4. Hyperlipidemia. Heart rates are much better now after holding flecainide and Cardizem. The patient was evaluated by Dr. Man of Cardiology and we do appreciate his help. We will continue to hold her rate control medications. Low-dose metoprolol was added yesterday and she has tolerated this well. We will continue this. We will continue her Xarelto as well as her other regimen. Hopefully she can be discharged later this afternoon with follow up with Dr. 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 Dictated by NAYELY Callaway for Jan Paige MD cc: NAYELY Callaway MD Gregory S. Cheatham, MD
[2017-02-22] MEDS ORDERED: MAG-OX PO SCH (09:00)
[2017-02-22] MEDS ORDERED: NITROGLYCERIN SL PRN (13:58)
--- NOTE | 2017-02-22 15:24 | PROGRESS NOTE ---
DATE: 02/22/2017 ADDENDUM: Patient here for symptomatic bradycardia. She is on flecainide and Cardizem as an outpatient for paroxysmal atrial fibrillation. Today cardiovascular regular rate, rhythm. Pulmonary clear auscultation bilateral. She has been ambulating without difficulty. The plan will be to discharge her tomorrow for outpatient treatment for possible pacemaker placement. She has been placed on low-dose metoprolol. We will hold her Xarelto tonight, make her n.p.o. and she will leave in the morning to be discharged from this facility go Dr. Pham's office for evaluation for pacer at that point. cc: Jan Paige MD
--- NOTE | 2017-02-22 17:38 | EKG Report ---
Test Performed on : 02/21/2017 08:11:50 AM Test Reason : CP Blood Pressure : / mmHG Vent. Rate : 055 BPM Atrial Rate : 055 BPM P-R Int : 224 ms QRS Dur : 162 ms QT Int : 530 ms P-R-T Axes : 058 -73 022 degrees QTc Int : 507 ms Sinus bradycardia. with 1st degree AV block. Left axis deviation Right bundle branch block Septal infarct , age undetermined Abnormal ECG When compared with ECG of 20-FEB-2017 13:34, (Unconfirmed) Sinus rhythm. has replaced Atrial fibrillation. Nonspecific T wave abnormality has replaced inverted T waves in Anterior leads Confirmed by Suraj Ho MD ([id number]) on 03/25/2017 6:32:09 PM
[2017-02-22] MEDS: PRAVACHOL PO SCH (20:31)
[2017-02-23 04:36] VITALS: BP 155/77
--- NOTE | 2017-02-23 07:13 | DISCHARGE SUMMARY ---
ADMISSION DATE: 02/20/2017 DISCHARGE DATE: 02/23/2017 DIAGNOSES: 1. Symptomatic bradycardia. 2. Paroxysmal atrial fibrillation. 3. Hypertension. 4. Hyperlipidemia. CONSULTANTS: Dr. Noah Man of Cardiology. DIAGNOSTICS: 1. On 02/20/2017 chest x-ray revealed no evidence of acute pathology. 2. Echocardiogram 02/20/2017 revealed an EF of 65% with aortic valve trileaflet, normal mitral valve, normal tricuspid valve with mild mitral regurgitation. No aortic stenosis or regurgitation. Pulmonary artery systolic pressure 39 mmHg. No pericardial effusion or obvious intracardiac mass or thrombus seen. HOSPITAL COURSE: Ms. Licona presented to the emergency room complaining of dizziness that had started about 2 weeks ago with no relief from Antivert. She states that over the 3-4 days prior to coming to the ER that she had some progressive weakness upon standing. Upon reviewing symptoms with the patient she states for that for about the past 9 months to a year that when she would stand that she would have "this funny feeling in the top of my head and I would become weak, it would take a minute or so to pass and then I could walk without any difficulty". She denied any chest pain, shortness of breath, palpitations or syncope with this funny feeling in her head. On arrival to the emergency room, she was noted to have a heart rate of 47. This did stay about 37 to it looks like 60 over the first 12-15 hours. At that time, heart rate she did increase to the 60s to 80s. She had been on Cardizem 180 and flecainide 50 b.i.d. for quite some time for atrial fibrillation. This was held on admission. Heart rates did increase. Once heart rates came up into the 60s, she was able to stand without that funny feeling on the top of her head. Blood pressures were in the 120s to 170s over 60s to 80s during this time. PHYSICAL EXAMINATION: Cardiovascular: Regular rate and rhythm. S1, S2 appreciated. Pulmonary: Breath sounds are clear. No increased work of breathing noted. Gastrointestinal: Abdomen is soft, nontender, and nondistended. Bowel sounds in all 4 quadrants. Extremities: No clubbing, cyanosis, or edema. Calves nontender. Pulses palpable x4. Neurologic: She is alert and oriented x3.. DISCHARGE MEDICATIONS: The patient will be NPO holding medications. FOLLOWUP: She will be discharged from the hospital at 06:00 in the morning on the to go to [facility] outpatient registration for pacemaker placement. This has been arranged per Geeta Starr's nurse. Instructions were faxed to the patient and given to the patient and her daughter per the nursing staff. Of note, the patient is on Xarelto. She will hold her 05:00 dose of Xarelto today and then any further medications will be per the instructions of Dr. Pham on discharge. Dictated by NAYELY Callaway for Gabriel Blanchard MD cc: NAYELY Callaway MD Alexis R. Penot, MD
[2017-02-23] MEDS ORDERED: LOPRESSOR PO SCH (09:00)
== END 2017-02-23 06:20 | disposition home or self-care (01) ==
LOC: P.ED 13:17 → P.ICU 16:00 → SUATTDRO 16:00 → P.MEDSURG 02-21 20:29
PROVIDERS: ADMIT Internal Medicine; ATTEND Internal Medicine